=== PATIENT | female | born 1975 | race Asian ===

== ENCOUNTER 2016-09-02 08:16 | Outpatient (CLI) | payer OTHER ==
[2016-09-02 09:21] LABS: ALBUMIN 3.7 g/dL (3.4-5.0); ANION GAP 9.2 (8-16); CALCIUM 8.4 mg/dL (8.5-10.1); CARBON DIOXIDE 27.9 mmol/L (21-32); CREATININE 0.5 mg/dL (0.6-1.3); POTASSIUM 4.1 mmol/L (3.5-5.1); TOTAL BILIRUBIN 0.3 mg/dL (0.0-1.0); TOTAL PROTEIN, SERUM 6.9 g/dL (6.4-8.2)
[2016-09-03 15:51] LABS: VITAMIN D, 25-HYDROXY 27.8 ng/mL (30.0-100.0)
[2016-09-05 16:06] LABS: HEMOGLOBIN A1C 5.4 % (4.8-5.6)
== END 2016-09-02 19:58 | disposition home or self-care (01) ==
LOC: MLB 08:16
PROVIDERS: ATTEND Internal Medicine Geriatric Medicine
DX: N92.4 Excessive bleeding in the premenopausal period (principal); E55.9 Vitamin D deficiency, unspecified; R73.09 Other abnormal glucose
CPT/HCPCS: 36415; 80053; 82306; 83036